=== PATIENT | female | born 1990 | race Caucasian/White ===

== ENCOUNTER 2021-01-09 21:49 | Emergency (ER) | payer OTHER ==
[~2021-01-09] VITALS: Ht 170.2 cm; Wt 61.2 kg
[2021-01-09 23:00] VITALS: BP 117/70
[2021-01-10] MEDS ORDERED: SULFAMETH/TRIMETH 800/160 MG 1 UDTAB TABLET PO ONE
[2021-01-10] MEDS ORDERED: SULF1TAB48 PO (00:37)
[2021-01-10] MEDS ORDERED: SULFAMETH/TRIMETH 800/160 MG 1 UDTAB TABLET ONE (00:39)
== END 2021-01-10 00:55 | disposition home or self-care (01) ==
LOC: ER 21:57
DX: S93.691A Other sprain of right foot, initial encounter (principal); T24.001A Burn of unspecified degree of unspecified site of right lower limb, except ankle and foot, initial encounter; Z98.890 Other specified postprocedural states; Z88.6 Allergy status to analgesic agent; X50.1XXA Overexertion from prolonged static or awkward postures, initial encounter; Y93.89 Activity, other specified; Y92.89 Other specified places as the place of occurrence of the external cause; Y99.8 Other external cause status
CPT/HCPCS: 73610-TC; 73630-TC